=== PATIENT | male | born 1955 | race Caucasian/White ===

== ENCOUNTER → 2020-07-04 09:25 | Outpatient (CLI) | payer OTHER, SELFPAY ==
--- NOTE | ~2020-07-04 | US_ITS ---
EXAMINATION: US carotid duplex BI DATE: 07/04/2020 09:59 INDICATION: Left carotid bruit. Right internal carotid artery occlusion TECHNIQUE: Grayscale, color Doppler, and pulsed Doppler images of the cervical carotid arteries were obtained. The degree of vessel stenosis is placed in one of the following categories: normal, <50%, 5 0-69%, >=70% but less than near-occlusion, near-occlusion, or total occlusion. Note that percent sten osis relative to normal distal artery lumen diameter is indirectly measured from velocity measurement s as described by Ananth, et al. Radiology 2003; 229:340-346. COMPARISON: 01/22/2019 FINDINGS: RIGHT: The right common carotid artery (CCA) peak systolic velocity (PSV) is 71 cm/s. The right internal car otid artery remains occluded with no internal flow on color Doppler. The external carotid artery (ECA ) PSV is 263 cm/s. There is antegrade flow in the right vertebral artery. LEFT: The left CCA PSV is 117 cm/s. The left ICA PSV is 127 cm/s. The left ICA EDV is 47 cm/s. The left ICA /CCA PSV ratio is 1.1. Grayscale and color Doppler images including secondary Doppler criteria yield an estimate of <50% diameter reduction from plaque in the ICA. The ECA PSV is 144 cm/s. There is ante grade flow in the left vertebral artery. IMPRESSION: 1. Total occlusion of the right internal carotid artery. 2. <50% stenosis in the left internal carotid artery. Reviewed, dictated and finalized at location A. [employer]
== END ==
PROVIDERS: PCP Family Medicine; Visit Provider Nurse Practitioner Adult Health
DX: I65.21 Occlusion and stenosis of right carotid artery (principal); R09.89 Other specified symptoms and signs involving the circulatory and respiratory systems
CPT/HCPCS: 93880

== ENCOUNTER → 2021-02-20 07:04 | Outpatient (CLI) | payer MEDICARE, SELFPAY ==
[2021-02-20 19:10] LABS: SARS-CoV-2 RNA PCR Negative
== END ==
DX: Z01.89 Encounter for other specified special examinations (principal); Z20.822 Contact with and (suspected) exposure to COVID-19
CPT/HCPCS: C9803; U0003; U0005